=== PATIENT | male | born 1985 | race Caucasian/White ===

== ENCOUNTER 2023-11-15 15:23 | Emergency (ER) | payer BC, OTHER, SELFPAY ==
[2023-11-15 15:32] VITALS: BP 158/84; PULSE 86; RESP 20; TEMP 37.6; O2SAT 98; BMI 21.8
--- NOTE | 2023-11-15 15:44 | ED.GENADULT ---
HPI - General Adult General Chief complaint: Sore Throat Stated complaint: Swollen lymph nodes, fever Time Seen by Provider: 11/15/23 15:26 History of Present Illness HPI narrative: This 38-year-old male comes in reporting sore throat and right ear pain that began a couple days ago. He also reports a low-grade fever. He does not report a cough or shortness of breath. He feels as though his lymph nodes are swollen. Related Data Home Medications Medication Instructions Recorded Confirmed albuterol sulfate 90 mcg/actuation 2 puff inhalation Q6H PRN 06/19/22 06/19/22 aerosol inhaler modafinil 100 mg tablet 100 mg PO 06/19/22 06/19/22 Previous Rx's Medication Instructions Recorded azithromycin 250 mg tablet See Rx Instructions PO .COMPLEX #6 06/19/22 tabs azithromycin 250 mg tablet 250 mg PO DAILY #6 tabs 11/15/23 (Zithromax Z-Donis) Allergies Allergy/AdvReac Type Severity Reaction Status Date / Time Penicillins Allergy Hives Verified 06/19/22 17:15 Review of Systems Status of ROS: Reports: 10 or more systems reviewed and unremarkable except as noted in History and below Narrative: Constitutional: No weight gain or loss. Eyes: No discharge. No vision changes. HENT: Sore throat and right ear pain. Cardiovascular: No chest pain, no palpitations. Respiratory: No shortness of breath, no wheezes, no cough. Gastrointestinal: No abdominal pain, no vomiting, no diarrhea. Genitourinary: No dysuria, no hematuria. Musculoskeletal: Normal range of motion. Skin: No rashes, no pruritis. Neurological: No dizziness, weakness, sensory change, speech change. Endo/Heme/Allergies: No bruising or bleeding. No polydipsia. Pysch: no suicidality, no anxiety, no insomnia. All other systems reviewed and are negative. PFSH PFS Social History Smoking Status: Never smoker Do you use any of these nicotine containing products: None Second hand tobacco smoke exposure: No Non-prescribed substance use: denies use Exam Narrative: Exam Narrative: Constitutional: Well-developed, well-nourished, no acute distress. HEENT: Normocephalic, atraumatic. Tympanic membranes appear normal bilaterally. Oropharynx shows erythema with bilateral tonsillar hypertrophy without exudate. Neck: Normal range of motion. Nontender. Supple. Heart: Regular. No murmurs. Normal rate. Intact distal pulses. Lungs: Clear to auscultation. No chest discomfort. No wheezes, rhonchi, or rales. Abdomen: Normal bowel sounds. Nontender. No rebound tenderness. Genitalia: Deferred. Back: No midline tenderness. Normal range of motion. Extremities: Normal range of motion. No injury. Skin: Intact. No rash. Warm. No erythema or pallor. Neurologic: No altered sensation. No weakness. Alert and oriented. Psychiatric: No suicidality. No anxiety or depression. No insomnia. Nursing notes and vitals signs are reviewed. Const: Vital Signs, click to edit/add: Vital Signs - 24 hr 11/15/23 15:32 Temperature 99.7 F H Pulse Rate [Pulse Oximeter] 86 Respiratory Rate 20 Blood Pressure [Ri ght Upper Arm] 158/84 H Pulse Oximetry 98 Oxygen Delivery Me thod Room Air Course Vital Signs Vital signs: Initial Vital Signs Temperature 99.7 F H 11/15/23 15:32 Temperature Source Temporal Artery Scan 11/15/23 15:32 Pulse Rate 86 11/15/23 15:32 Respiratory Rate 20 11/15/23 15:32 Blood Pressure 158/84 H 11/15/23 15:32 Blood Pressure Mean 108 H 11/15/23 15:32 Pulse Oximetry 98 11/15/23 15:32 Oxygen Delivery Method Room Air 11/15/23 15:32 Vital Signs Temperature 99.7 F H 11/15/23 15:32 Pulse Rate 86 11/15/23 15:32 Respiratory Rate 20 11/15/23 15:32 Blood Pressure 158/84 H 11/15/23 15:32 Pulse Oximetry 98 11/15/23 15:32 Oxygen Delivery Method Room Air 11/15/23 15:32 Temperature 99.7 F H 11/15/23 15:32 Pulse Rate 86 11/15/23 15:32 Respiratory Rate 20 11/15/23 15:32 Blood Pressure 158/84 H 11/15/23 15:32 Pulse Oximetry 98 11/15/23 15:32 Oxygen Delivery Method Room Air 11/15/23 15:32 Medications Administered Medications: Discontinued Medications Generic Name Dose Route Start Last Admin Trade Name Freq PRN Reason Stop Dose Admin Dexamethasone 10 mg 11/15/23 15:42 11/15/23 15:54 Dexamethasone 10 Mg/Ml Inj PO 11/15/23 15:43 10 mg ONCE ONE Administration Medical Decision Making MDM Narrative Medical decision making narrative: This patient comes in with sore throat as described above. Rapid strep test returns positive. The patient did receive an oral dose of dexamethasone and a prescription for Z-Donis as he reports an allergy to penicillin. Lab Data Labs: Lab Results 11/15/23 Range/Units 15:36 Group A Strep DNA DETECTED A (Not Detectd) Discharge Plan Discharge Clinical Impression: Acute streptococcal pharyngitis Patient Disposition: Home, Self-Care Condition: Stable Additional Instructions: Take medication as prescribed. Use [id number] medicines also as needed and directed. Follow up with MD or return if worsening. Prescriptions: New azithromycin [Zithromax Z-Donis] 250 mg tablet 250 mg PO DAILY Qty: 6 0RF No Action modafinil 100 mg tablet 100 mg PO Patient Comments: TAKE 1 TAB BY MOUTH DAILY IN THE MORNING FOR HYPERSOMNIA albuterol sulfate 90 mcg/actuation HFA aerosol inhaler 2 puff inhalation Q6H PRN azithromycin 250 mg tablet See Rx Instructions PO .COMPLEX Qty: 6 0RF Rx Instructions: For 250 mg dose pack: take 500 mg today (day 1), then 250 mg for 4 days (days 2-5) PO Follow Up/Referrals: Provider,Not a Local [Primary Care Provider] - Stand Alone Forms: [employer] Info Instructions
[2023-11-15] MEDS: dexAMETHasone 10 MG/ML inj PO (15:54)
[2023-11-15 16:12] LABS: Strep A DNA Probe* DETECTED (Not Detectd)
[2023-11-15 16:27] LABS: SARS PCR* Negative SARS-CoV-2 (Negative)
[2023-11-15 17:08] LABS: PCR FLU A Negative PCR FLU A (Negative); PCR FLU B Negative PCR FLU B (Negative); PCR RSV Negative PCR RSV (Negative)
== END 2023-11-15 16:35 | disposition home or self-care (01) ==
PROVIDERS: Emergency Provider Emergency Medicine Emergency Medical Services
DX: J02.0 Streptococcal pharyngitis (principal)
CPT/HCPCS: 87631; 87651; 99283; 99284; J1100